=== PATIENT | male | born 1995 | race Caucasian/White ===

== ENCOUNTER 2018-10-03 04:35 | Emergency (ER) | payer MEDICAID, OTHER ==
[~2018-10-03] VITALS: Ht 175.3 cm; Wt 69.0 kg
[~2018-10-03 04:35] MED LIST: ALBU8.5H5 INH; AZIT250T PO; LEVO500T48 PO; UDPVCC PO
[2018-10-03 04:40] VITALS: BP 128/76; PULSE 86; RESP 20; Ht 175.3 cm; Wt 69.0 kg
[2018-10-03] MEDS ORDERED: KETOROLAC 60 MG INJ IM STA (06:19)
[2018-10-03] MEDS ORDERED: NAPR-985 PO (08:11)
--- NOTE | 2018-10-03 09:36 | ERD ---
ER Documentation Chief Complaint Chief Complaint squeezing CP w/L arm numbness since 1AM,took Albuterol; hx asthma HPI 23-year-old male presenting with left-sided chest wall pain and squeezing to his left arm. He states that started this morning. He happened 2 weeks ago but resolved spontaneously. He denies any fevers. He has some mild neck pain. He denies any trauma. Has not taken medications for his symptoms. Medical history is asthma. NKDA. Surgical history denies. Social history denies ROS All systems reviewed and are negative except as per history of present illness. Medications Home Meds Active Scripts Naproxen* (Naprosyn*) 500 Mg Tablet, 500 MG PO BID PRN for PAIN AND/OR INFLAMMATION, #30 TAB Prov:NICK GILL PA-C 10/03/18 Levofloxacin* (Levaquin*) 500 Mg Tablet, 500 MG PO DAILY for 7 Days, TAB Prov:OMERO CABEZAS 02/12/15 Albuterol Sulfate* (Albuterol Sulfate* HFA) 8.5 Gm Hfa.aer.ad, 1-2 PUFF INH Q4 PRN for SHORTNESS OF BREATH, #1 EA Prov:OMERO CABEZAS 02/12/15 Phenylephrine Tqk-[id number]-Llqfbpmtepld* (Promethazine VC Codeine* Syrup) 120 Ml Syrup, 5 ML PO Q6 PRN for COUGH for 5 Days, ML Prov:SHERON REYNA PA-C 01/26/15 Azithromycin* (Zithromax*) 250 Mg Tablet, 250 MG PO .ZPACK DIRECTED, #6 TAB TAKE 500 MG (2 TABS) THE FIRST DAY THEN 250 MG (1 TAB) DAYS 2-5 Prov:SHERON REYNA PA-C 01/26/15 Allergies Allergies: Coded Allergies: shrimp (Verified Allergy, Intermediate, 01/26/15) PMhx/Soc Medical and Surgical Hx: pt denies Surgical Hx History of Surgery: No Anesthesia Reaction: No Hx Neurological Disorder: No Hx Respiratory Disorders: Yes (ASTHMA) Hx Cardiac Disorders: No Hx Psychiatric Problems: No Hx Miscellaneous Medical Probl: No Hx Alcohol Use: No Hx Substance Use: No Hx Tobacco Use: No Smoking Status: Never smoker FmHx Family History: No diabetes, No coronary disease, No other Physical Exam Vitals Vital Signs Date Temp Pulse Resp B/P (MAP) Pulse Ox O2 O2 Flow FiO2 Time Delivery Rate 10/03/18 98.0 86 20 128/76 97 04:40 (93) Physical Exam GENERAL: The patient is well-appearing, well-nourished, in no acute distress HEENT: Atraumatic. Conjunctivae are pink. Pupils equal, round, and reactive to light. There is no scleral icterus. Tympanic membranes clear bilaterally. Oropharynx clear. NECK: C-spine is soft and supple. There is no meningismus. There is no cervical lymphadenopathy. CHEST: Clear to auscultation bilaterally. There are no rales, wheezes or rhonchi. HEART: Regular rate and rhythm. No murmurs, clicks, rubs or gallops. Result Diagram: 10/03/1823 10/03/18 0622 Results 24 hrs Laboratory Tests Test 10/03/18 06:22 10/03/18 06:23 Sodium Level 142 mmol/L Potassium Level 4.3 mmol/L Chloride Level 104 mmol/L Carbon Dioxide Level 31 mmol/L Anion Gap 7 Blood Urea Nitrogen 11 mg/dl Creatinine 0.80 mg/dl Est Glomerular Filtrat Rate mL/min > 60 mL/min Glucose Level 108 mg/dl Calcium Level 9.3 mg/dl Total Bilirubin 0.9 mg/dl Direct Bilirubin 0.00 mg/dl Indirect Bilirubin 0.9 mg/dl Aspartate Amino Transf (AST/SGOT) 21 IU/L Alanine Aminotransferase (ALT/SGPT) 24 IU/L Alkaline Phosphatase 112 IU/L Troponin I < 0.012 ng/ml Total Protein 7.2 g/dl Albumin 4.2 g/dl Globulin 3.00 g/dl Albumin/Globulin Ratio 1.40 White Blood Count 10.6 10^3/ul Red Blood Count 5.02 10^6/ul Hemoglobin 15.5 g/dl Hematocrit 46.0 % Mean Corpuscular Volume 91.6 fl Mean Corpuscular Hemoglobin 30.9 pg Mean Corpuscular Hemoglobin Concent 33.7 g/dl Red Cell Distribution Width 12.1 % Platelet Count 261 10^3/UL Mean Platelet Volume 9.7 fl Immature Granulocytes % 0.300 % Neutrophils % 69.1 % Lymphocytes % 19.8 % Monocytes % 9.4 % Eosinophils % 1.0 % Basophils % 0.4 % Nucleated Red Blood Cells % 0.0 /100WBC Immature Granulocytes # 0.030 10^3/ul Neutrophils # 7.3 10^3/ul Lymphocytes # 2.1 10^3/ul Monocytes # 1.0 10^3/ul Eosinophils # 0.1 10^3/ul Basophils # 0.0 10^3/ul Nucleated Red Blood Cells # 0.0 10^3/ul Current Medications Medications Dose Sig/Lalitha Start Time Status Last (Trade) Ordered Route PRN Stop Time Admin Dose Reason Admin Ketorolac 60 mg ONCE STAT 10/03/18 DC 10/03/18 Tromethamine IM 06:19 06:39 (Toradol) 10/03/18 06:20 Procedures/MDM DIAGNOSTIC IMAGING REPORT Patient: PERLA DE LA CRUZ : 1995 Age: 23 Sex: M MR #: [id number] DOS: 10/03/18 0000 Ordering MD: MONALISA GILL PA-C Location: [facility] Room/Bed: PROCEDURE: CHEST - 1 VIEW CLINICAL INDICATION: 23-year-old male with chest pain. TECHNIQUE: A single frontal AP erect view of the chest was performed. The images were reviewed on a PACS workstation. COMPARISON: CR CHEST 02/12/2015; CR CHEST 01/26/2015 FINDINGS: The cardiomediastinal silhouette has a normal appearance. There is no evidence for an infiltrate. The pulmonary vascularity is within normal limits. There is no evidence for pneumothorax or pneumomediastinum. The osseous structures are intact. IMPRESSION: No evidence for active cardiopulmonary disease. EKG: Rate/Rhythm: 88 bpm Normal Sinus Rhythm QRS, ST, T-waves: No changes consistent w/ acute ischemia Impression: No evidence of ischemia or arrhythmia MDM: 23-year-old male presenting with left-sided chest wall pain. I have low suspicion for cardiac or pulmonary emergency. Patient's exam is non-concerning. I have considered cardiac emergency, endocarditis and myocarditis however have low suspicion. Patient's troponin EKG and blood work are within normal limits. I have low suspicion for cardiac emergency. I have low suspicion for asthma exacerbation as patient's breath sounds are within normal limits. Patient is discharged with strict ER precautions and told to follow-up with primary care in 1 to 2 days for close evaluation. Patient is discharged with strict ER precautions. All questions answered at discharge Departure Diagnosis: Primary Impression: Chest wall pain Condition: Stable Patient Instructions: Chest Pain, Uncertain Cause Referrals: [facility] YOU HAVE RECEIVED A MEDICAL SCREENING EXAM AND THE RESULTS INDICATE THAT YOU DO NOT HAVE A CONDITION THAT REQUIRES URGENT TREATMENT IN THE EMERGENCY DEPARTMENT. FURTHER EVALUATION AND TREATMENT OF YOUR CONDITION CAN WAIT UNTIL YOU ARE SEEN IN YOUR DOCTORS OFFICE WITHIN THE NEXT 1-2 DAYS. IT IS YOUR RESPONSIBILITY TO MAKE AN APPOINTMENT FOR FOLOW-UP CARE. IF YOU HAVE A PRIMARY DOCTOR --you should call your primary doctor and schedule an appointment IF YOU DO NOT HAVE A PRIMARY DOCTOR YOU CAN CALL OUR PHYSICIAN REFERRAL HOTLINE AT IF YOU CAN NOT AFFORD TO SEE A PHYSICIAN YOU CAN CHOSE FROM THE FOLLOWING [facility] [address] [facility] [address] [facility] [address] [facility] [address] [facility] [address] [facility]. [facility] [address] Additional Instructions: FOLLOW UP WITH YOUR PRIMARY CARE PHYSICIAN TOMORROW.Return to this facility if you are not improving as expected. NICK GILL PA-C Oct 03, 2018 09:36
== END 2018-10-03 08:18 | disposition home or self-care (01) ==
LOC: FTE 04:35
DX: R07.89 Other chest pain (principal); J45.909 Unspecified asthma, uncomplicated
CPT/HCPCS: 36415; 71045; 80053; 84484; 85025; 93005; 96372; J1885; Z7502